=== PATIENT | male | born 1940 | race Caucasian/White ===

== ENCOUNTER 2022-11-08 19:43 | Emergency (ER) | payer MEDICARE ==
[2022-11-08 19:54] VITALS: BP 156/85; PULSE 99; RESP 20; TEMP 97.4
--- NOTE | 2022-11-08 20:23 | XR ---
EXAMINATION TYPE: XR KUB DATE OF EXAM: 11/08/2022 8:18 PM INDICATION: Patient age:Male; 82 years old; Reason for study: constipation; PH[facility]. COMPARISON: None. TECHNIQUE: One radiographic view of the abdomen was obtained. FINDINGS: The bowel gas pattern is nonspecific without dilated loops of small or large bowel. There i s no evidence for pneumoperitoneum. The osseous structures are intact with degenerative changes of t he lower lumbar spine. Fecal material and gas are demonstrated throughout the colon and rectum. Vis ualized portions of the lung bases are unremarkable. IMPRESSION: Nonspecific bowel gas pattern without radiographic evidence for acute process.
--- NOTE | 2022-11-08 21:06 | ED ---
General Adult HPI - General Chief complaint: Abdominal Pain Stated complaint: Constipated Time Seen by Provider: 11/08/22 19:58 Source: patient, EMS, RN notes reviewed Mode of arrival: EMS Limitations: no limitations - History of Present Illness Initial comments: 82-year-old male with no significant past medical history presents the emergency department with a chief complaint of constipation. Patient reports that he has gone one day without having a bowel movement. He reports that he has had an issue with constipation in the past. He reports that he attempted fecal disimpaction on its own without symptomatic relief. He denies any fever, chills, nausea,, chest pain, shortness of breath, melena, hematochezia, dysuria, hematuria. He has not taken anything for his symptoms. - Related Data Allergies Allergy/AdvReac Type Severity Reaction Status Date / Time No Known Allergies Allergy Verified 01/21/22 13:57 Review of Systems ROS Statement: Those systems with pertinent positive or pertinent negative responses have been documented in the HPI. ROS Other: All systems not noted in ROS Statement are negative. Past Medical History Past Medical History: No Reported History History of Any Multi-Drug Resistant Organisms: None Reported Additional Past Surgical History / Comment(s): Skin cancer Past Psychological History: No Psychological Hx Reported Smoking Status: Never smoker Past Alcohol Use History: None Reported Past Drug Use History: None Reported General Exam - General Exam Comments Initial Comments: General: Alert, in no acute distress Head: atraumatic normocephalic. Eyes PERRL, EOMI intact, mucous membranes moist Respiratory: Lungs clear to auscultation bilaterally Cardiovascular: Heart rate regular rate and rhythm Abdominal: Soft without guarding or rebound Extremities: Normal inspection with full range of motion and normal capillary refill Neuroogic: alert and oriented 3, CN II-XII intact, able to ambulate with steady gait Skin: warm dry and intact with normal color Limitations: no limitations Course Vital Signs 11/08/22 19:50 Temperature 97.4 F L Pulse Rate 99 Respiratory 20 Rate Blood Pressure 156/85 O2 Sat by Pulse 98 Oximetry Medical Decision Making - Medical Decision Making Was pt. sent in by a medical professional or institution (, PA, [employer] DRAWER [employer], urgent care, hospital, or skilled nursing...) When possible be specific @ -[No] Did you speak to anyone other than the patient for history (EMS, parent, family, police, friend...)? What history was obtained from this source @ -[No] Did you review nursing and triage notes (agree or disagree)? Why? @ -[I reviewed and agree with nursing and triage notes] Were old charts reviewed (outside hosp., previous admission, EMS record, old EKG, old radiological studies, urgent care reports/EKG's, skilled nursing records)? Report findings @ -[No old charts were reviewed] Differential Diagnosis (chest pain, altered mental status, abdominal pain women, abdominal pain men, vaginal bleeding, weakness, fever, dyspnea, syncope, headache, dizziness, GI bleed, back pain, seizure, CVA, palpatations, mental health, musculoskeletal)? @ -[not applicable] EKG interpreted by me (3pts min.). @ -[As above] X-rays interpreted by me (1pt min.). @ -[None done] CT interpreted by me (1pt min.). @ -[None done] U/S interpreted by me (1pt. min.). @ -[None done] What testing was considered but not performed or refused? (CT, X-rays, U/S, labs)? Why? @ -[None] What meds were considered but not given or refused? Why? @ -[None] Did you discuss the management of the patient with other professionals (pro fessionals i.e. , PA, [employer] D[employer], lab, RT, psych nurse, social media campaign manager, cattle farmer, teacher, u.s. revenue officer, insurance case manager)? Give summary @ -[No] Was smoking cessation discussed for >3mins.? @ -[No] Was critical care preformed (if so, how long)? @ -[No] Were there social determinants of health that impacted care today? How? (Homelessness, low income, unemployed, alcoholism, drug addiction, transportation, low edu. Level, literacy, decrease access to med. care, [facility], rehab)? @ -[No] Was there de-escalation of care discussed even if they declined (Discuss DNR or withdrawal of care, Hospice)? DNR status @ -[No] What co-morbidities impacted this encounter? (DM, HTN, Smoking, COPD, CAD, Cancer, CVA, ARF, Chemo, Hep., AIDS, mental health diagnosis, sleep apnea, morbid obesity)? @ -[None] Was patient admitted / discharged? Hospital course, mention meds given and route, prescriptions, significant lab abnormalities, going to OR and other pertinent info. @ -Discharged. This is a 82-year-old male who presents the emergency department with constipation. Patient had a thorough history and physical exam performed on the ED. Physical exam essentially unremarkable heart rate regular rate and rhythm, lungs clear to auscultation bilaterally, abdomen is soft and nontender. Patient able to ambulate with a steady gait. Able to move all extremities freely. Patient had imaging performed in the ED which was essentially negative. Patient was given milk and molasses enema with symptomatic relief. I discussed the results in detail with the patient verbalized understanding. . Return precautions were discussed at length. Patient discharged in stable condition. He was strongly encouraged to follow up with PCP in 1-2 days. Case discussed with MIKEY Rutledge who agrees with plan of care Undiagnosed new problem with uncertain prognosis? @ -[No] Drug Therapy requiring intensive monitoring for toxicity (Heparin, Nitro, Insulin, Cardizem)? @ -[No] Were any procedures done? @ -[No] Diagnosis/symptom? @ -constipation Acute, or Chronic, or Acute on Chronic? @ -acute Uncomplicated (without systemic symptoms) or Complicated (systemic symptoms)? @ -uncomplicated Side effects of treatment? @ -[No] Exacerbation, Progression, or Severe Exacerbation? @ -[No] Poses a threat to life or bodily function? How? (Chest pain, [place], [place], pneumonia, PE, COPD, DKA, ARF, appy, cholecystitis, CVA, Diverticulitis, Homicidal, Suicidal, threat to staff... and all critical care pts) @ -low likeihood Disposition Clinical Impression: Constipation Disposition: HOME SELF-CARE Condition: Stable Instructions (If sedation given, give patient instructions): Constipation (DC), High Fiber Diet (ED) Additional Instructions: Return to the nearest emergency department if symptoms worsen or persist Is patient prescribed a controlled substance at d/c from ED?: No Referrals: None,Stated [Primary Care Provider] - 1-2 days Time of Disposition: 21:05
== END 2022-11-08 21:12 | disposition home or self-care (01) ==
LOC: EC 19:43
DX: K59.00 Constipation, unspecified (principal)
CPT/HCPCS: 74018; 99284

== ENCOUNTER 2024-04-20 14:32 | Emergency (ER) | payer MEDICARE ==
--- NOTE | 2024-04-20 14:46 | ED ---
Altered Mental Status HPI - General Stated Complaint: AMS/Fall/poss dog bite Time Seen by Provider: 04/20/24 14:33 Source: RN notes reviewed, old records reviewed Mode of arrival: EMS Limitations: no limitations - History of Present Illness Initial Comments: This is a 84-year-old male to the ER for evaluation of altered mental status concern for fall confusion and patient admits to marijuana use today. Patient states he is not done this in years but is complaining of not feeling right and that is why he called EMS MD Complaint: altered mental status -: minutes(s) Severity: mild Consistency of Symptoms: waxing and waning Associated Symptoms: denies other symptoms Treatments Prior to Arrival: oxygen - Related Data Home Medications Medication Instructions Recorded Confirmed No Known Home Medications 04/20/24 04/20/24 Allergies Allergy/AdvReac Type Severity Reaction Status Date / Time No Known Allergies Allergy Verified 04/20/24 16:53 Review of Systems ROS Statement: Those systems with pertinent positive or pertinent negative responses have been documented in the HPI. ROS Other: All systems not noted in ROS Statement are negative. Past Medical History Past Medical History: No Reported History History of Any Multi-Drug Resistant Organisms: None Reported Additional Past Surgical History / Comment(s): Skin cancer Past Psychological History: No Psychological Hx Reported Smoking Status: Never smoker Past Alcohol Use History: None Reported Past Drug Use History: None Reported General Exam Limitations: altered mental status, physical limitation General appearance: alert, in no apparent distress Head exam: Present: atraumatic, normocephalic, normal inspection Eye exam: Present: normal appearance, PERRL, EOMI. Absent: scleral icterus, conjunctival injection, periorbital swelling ENT exam: Present: normal exam, mucous membranes moist Neck exam: Present: normal inspection. Absent: tenderness, meningismus, lymph adenopathy Respiratory exam: Present: normal lung sounds bilaterally. Absent: respiratory distress, wheezes, rales, rhonchi, stridor Cardiovascular Exam: Present: regular rate, normal rhythm, normal heart sounds. Absent: systolic murmur, diastolic murmur, rubs, gallop, clicks GI/Abdominal exam: Present: soft, normal bowel sounds. Absent: distended, tenderness, guarding, rebound, rigid Extremities exam: Present: normal inspection, full ROM, normal capillary refill. Absent: tenderness, pedal edema, joint swelling, calf tenderness Back exam: Present: normal inspection Neurological exam: Present: alert, oriented X3, CN II-XII intact Psychiatric exam: Present: normal affect, normal mood Skin exam: Present: warm, dry, intact, normal color. Absent: rash Course Vital Signs 04/20/24 04/20/24 04/20/24 14:49 16:00 19:10 Temperature 97.5 F L 98.0 F Pulse Rate 82 63 70 Respiratory 18 22 24 Rate Blood Pressure 126/66 124/70 126/80 O2 Sat by Pulse 96 97 99 Oximetry - Reevaluation(s) Reevaluation #1: 04/20/24 14:46 Medical records reviewed Reevaluation #2: 04/20/24 18:21 Patient has no complaints here in the ER symptoms improved Reevaluation #3: 04/20/24 18:21 Patient informed of results and questions answered Reevaluation #4: Was pt. sent in by a medical professional or institution (, PA, CUSTOMS BROKERAGE AGENT, urgent care, hospital, or detention...) When possible be specific @ -no Did you speak to anyone other than the patient for history (EMS, parent, family, police, friend...)? What history was obtained from this source @ -no Did you review nursing and triage notes (agree or disagree)? Why? @ -agree Are old charts reviewed (outside hosp., previous admission, EMS record, old EKG, old radiological studies, urgent care reports/EKG's, detention records)? Report findings @ -yes Differential Diagnosis (chest pain, altered mental status, abdominal pain women, abdominal pain men, vaginal bleeding, weakness, fever, dyspnea, syncope, headache, dizziness, GI bleed, back pain, seizure, CVA, palpatations, mental health, musculoskeletal)? @ -prior EKG interpreted by me (3pts min.). @ -no X-rays interpreted by me (1pt min.). @ -no CT interpreted by me (1pt min.). @ -no U/S interpreted by me (1pt. min.). @ -no What testing was considered but not performed or refused? (CT, X-rays, U/S, labs)? Why? @ -none What meds were considered but not given or refused? Why? @ -none Did you discuss the management of the patient with other professionals (professionals i.e. , PA, CUSTOMS BROKERAGE AGENT, lab, RT, psych nurse, healthcare social worker, steam and gas turbines assembler, teacher, parole hearing officer, hospice case manager)? Give summary @ -no Was smoking cessation discussed for >3mins.? @ -no Was critical care preformed (if so, how long)? @ -no Were there social determinants of health that impacted care today? How? (Homelessness, low income, unemployed, alcoholism, drug addiction, transportation, low edu. Level, literacy, decrease access to med. care, mcfp, rehab)? @ -none Was there de-escalation of care discussed even if they declined (Discuss DNR or withdrawal of care, Hospice)? DNR status @ -no What co-morbidities impacted this encounter? (DM, HTN, Smoking, COPD, CAD, Cancer, CVA, ARF, Chemo, Hep., AIDS, mental health diagnosis, sleep apnea, morbid obesity)? @ -none Was patient admitted / discharged? Hospital course, mention meds given and route, prescriptions, significant lab abnormalities, going to OR and other pertinent info. @ - 84 male to ER for evaluation of altered mental status significant odor of marijuana here in the emergency room. Patient has no other complaints feels well throughout ER stay lab testing is normal imaging is negative he can be discharged home Discharged Undiagnosed new problem with uncertain prognosis? @ -no Drug Therapy requiring intensive monitoring for toxicity (Heparin, Nitro, Insu sai, Cardizem)? @ -no Were any procedures done? @ -no Diagnosis/symptom? @ -Altered mental state Acute, or Chronic, or Acute on Chronic? @ -Acute Uncomplicated (without systemic symptoms) or Complicated (systemic symptoms)? @ -Complicated Side effects of treatment? @ -no Exacerbation, Progression, or Severe Exacerbation? @ -exacerbation Poses a threat to life or bodily function? How? (Chest pain, [place], [place], pneumonia, PE, COPD, DKA, ARF, appy, cholecystitis, CVA, Diverticulitis, Homicidal, Suicidal, threat to staff... and all critical care pts) @ -yes extremes of age Reevaluation #5: Differential Altered Mental Status: Hypoglycemia, DKA, hypercapnia, ETOH, overdose, CO poisoning, trauma, myxedema coma, HTN encephalopathy, infection, encephalitis, psychosis, intercranial hemorrhage, hepatic encephalopathy, meningitis, CVA, this is not meant to be an all-inclusive list Medical Decision Making - Medical Decision Making 84 male to ER for evaluation of altered mental status significant odor of marijuana here in the emergency room. Patient has no other complaints feels well throughout ER stay lab testing is normal imaging is negative he can be discharged home - Lab Data Result diagrams: 04/20/24 16:02 04/20/24 16:02 Lab Results 04/20/24 04/20/24 04/20/24 Range/Units 16:02 16:02 16:02 WBC 7.3 (3.8-10.6) k/uL RBC 4.44 (4.30-5.90) m/uL Hgb 13.1 (13.0-17.5) gm/dL Hct 40.5 (39.0-53.0) % MCV 91.2 (80.0-100.0) fL MCH 29.6 (25.0-35.0) pg MCHC 32.5 (31.0-37.0) g/dL RDW 12.9 (11.5-15.5) % Plt Count 224 (150-450) k/uL MPV 8.1 Neutrophils % 71 % Lymphocytes % 18 % Monocytes % 7 % Eosinophils % 1 % Basophils % 0 % Neutrophils # 5.2 (1.3-7.7) k/uL Lymphocytes # 1.3 (1.0-4.8) k/uL Monocytes # 0.5 (0-1.0) k/uL Eosinophils # 0.1 (0-0.7) k/uL Basophils # 0.0 (0-0.2) k/uL PT 11.2 (10.0-12.5) sec INR 1.0 (<1.2) APTT 25.0 (22.0-30.0) sec Sodium 140 (137-145) mmol/L Potassium 4.6 (3.5-5.1) mmol/L Chloride 107 (98-107) mmol/L Carbon Dioxide 27 (22-30) mmol/L Anion Gap 6 mmol/L BUN 23 H (9-20) mg/dL Creatinine 1.37 H (0.66-1.25) mg/dL Est GFR (CKD-EPI)AfAm 54 (>60 ml/min/1.73 sqM) Est GFR (CKD-EPI)NonAf 47 (>60 ml/min/1.73 sqM) Glucose 96 (74-99) mg/dL Calcium 9.3 (8.4-10.2) mg/dL Total Bilirubin 1.3 (0.2-1.3) mg/dL AST 22 (17-59) U/L ALT 14 (4-49) U/L Alkaline Phosphatase 77 (38-126) U/L Troponin I (0.000-0.034) ng/mL Total Protein 6.6 (6.3-8.2) g/dL Albumin 4.3 (3.5-5.0) g/dL Serum Alcohol <10 mg/dL 04/20/24 Range/Units 16:02 WBC (3.8-10.6) k/uL RBC (4.30-5.90) m/uL Hgb (13.0-17.5) gm/dL Hct (39.0-53.0) % MCV (80.0-100.0) fL MCH (25.0-35.0) pg MCHC (31.0-37.0) g/dL RDW (11.5-15.5) % Plt Count (150-450) k/uL MPV Neutrophils % % Lymphocytes % % Monocytes % % Eosinophils % % Basophils % % Neutrophils # (1.3-7.7) k/uL Lymphocytes # (1.0-4.8) k/uL Monocytes # (0-1.0) k/uL Eosinophils # (0-0.7) k/uL Basophils # (0-0.2) k/uL PT (10.0-12.5) sec INR (<1.2) APTT (22.0-30.0) sec Sodium (137-145) mmol/L Potassium (3.5-5.1) mmol/L Chloride (98-107) mmol/L Carbon Dioxide (22-30) mmol/L Anion Gap mmol/L BUN (9-20) mg/dL Creatinine (0.66-1.25) mg/dL Est GFR (CKD-EPI)AfAm (>60 ml/min/1.73 sqM) Est GFR (CKD-EPI)NonAf (>60 ml/min/1.73 sqM) Glucose (74-99) mg/dL Calcium (8.4-10.2) mg/dL Total Bilirubin (0.2-1.3) mg/dL AST (17-59) U/L ALT (4-49) U/L Alkaline Phosphatase (38-126) U/L Troponin I <0.012 (0.000-0.034) ng/mL Total Protein (6.3-8.2) g/dL Albumin (3.5-5.0) g/dL Serum Alcohol mg/dL - Radiology Data Radiology results: report reviewed (CT brain C-spine x-ray chest and pelvis negative for traumatic injury or acute disease), image reviewed Disposition Clinical Impression: Altered mental status Disposition: HOME SELF-CARE Condition: Good Instructions (If sedation given, give patient instructions): Altered Mental Status (ED) Is patient prescribed a controlled substance at d/c from ED?: No Referrals: Nonstaff,Physician [Primary Care Provider] - 1-2 days Time of Disposition: 18:00
[2024-04-20] MEDS: SODIUM CHLORIDE 0.9% 1,000 ML IV ONE (15:51)
[2024-04-20 16:26] LABS: Basophils % (A) 0 %; Eosinophils # (A) 0.1 k/uL (0-0.7); Eosinophils % (A) 1 %; HCT 40.5 % (39.0-53.0); HGB 13.1 gm/dL (13.0-17.5); Lymphocytes # (A) 1.3 k/uL (1.0-4.8); Lymphocytes % (A) 18 %; MCH 29.6 pg (25.0-35.0); MCHC 32.5 g/dL (31.0-37.0); MCV 91.2 fL (80.0-100.0); Mean Platelet Volume 8.1; Monocytes # (A) 0.5 k/uL (0-1.0); Monocytes % (A) 7 %; Neutrophils # (A) 5.2 k/uL (1.3-7.7); Neutrophils % (A) 71 %; Platelet Count 224 k/uL (150-450); RBC 4.44 m/uL (4.30-5.90); RDW 12.9 % (11.5-15.5); WBC 7.3 k/uL (3.8-10.6)
[2024-04-20 16:35] LABS: Chloride 107 mmol/L (98-107)
[2024-04-20 16:38] LABS: ALT 14 U/L (4-49); AST 22 U/L (17-59); African American GFR (CKD) 54 (>60 ml/min/1.73 sqM); Albumin 4.3 g/dL (3.5-5.0); Alcohol <10 mg/dL; Alkaline Phosphatase 77 U/L (38-126); Anion Gap 6 mmol/L; Blood Urea Nitrogen 23 mg/dL (9-20); Calcium 9.3 mg/dL (8.4-10.2); Carbon Dioxide 27 mmol/L (22-30); Glucose 96 mg/dL (74-99); Non-African American GFR(CKD) 47 (>60 ml/min/1.73 sqM); Potassium 4.6 mmol/L (3.5-5.1); Sodium 140 mmol/L (137-145); Total Bilirubin 1.3 mg/dL (0.2-1.3); Total Protein 6.6 g/dL (6.3-8.2)
--- NOTE | 2024-04-20 16:47 | CT ---
EXAMINATION TYPE: CT brain rosemary wo con DATE OF EXAM: 04/20/2024 COMPARISON: None HISTORY: fall, ams CT DLP: 1474.3 mGycm, Automated exposure control for dose reduction was used. CONTRAST: Patient injected with 0 mL of Isovue 300. CT of the brain is performed utilizing 3 mm thick sections through the posterior fossa and 3 mm thick sections through the remaining calvarium. Study is performed within 24 hours of arrival to the hospital. No abnormal hyperdensity is present to suggest an acute intracranial hemorrhage. No mass lesion is evident. No acute infarcts are evident. Very mild periventricular white matter hypodensity is present, likely on the basis of chronic white matter ischemic changes. Ventricles and sulci are minimally prominent for the patient age. Paranasal sinuses and mastoid air cells within the [id number] are clear. IMPRESSIONS: 1. No acute intracranial process. Follow-up MRI can be performed as clinically indicated. 2. Minimal white matter ischemic type changes. CT cervical spine. COMPARISON: None CT of the cervical spine is performed in the axial plane at 2 mm thick sections. Reconstructed image s in the coronal, and sagittal plane are reviewed on the computer. No acute fractures are evident. Vertebral body alignment is normal. There is loss of disc height posteriorly C2-3 C3-4 C4-5. There is loss of disc at C6-7 Vertebral body heights are preserved. Anterior spinal canal impression is present C3-4 in the left paracentral region. Some mild left foraminal narrowing from uncovertebral joint hemorrhage is present. Mild right foramin al narrowing is present C5-6 IMPRESSION: 1. Degenerative disc changes with some mild foraminal narrowing discussed above. 2. No acute osseous abnormality [facility], Workstation: [facility], 04/20/2024 4:45 PM
[2024-04-20 17:35] LABS: Prothrombin Time 11.2 sec (10.0-12.5)
--- NOTE | 2024-04-20 17:58 | XR ---
EXAMINATION TYPE: XR chest 1V DATE OF EXAM: 04/20/2024 COMPARISON: None INDICATION: Fall TECHNIQUE: Single frontal view of the chest is obtained. FINDINGS: The heart size is normal. The pulmonary vasculature is normal. The lungs are clear. No pneumothorax is evident. No displaced rib fractures. IMPRESSION: 1. No acute pulmonary process. [facility], Workstation: [facility], 04/20/2024 5:56 PM
--- NOTE | 2024-04-20 17:59 | XR ---
EXAMINATION TYPE: XR pelvis AP view DATE OF EXAM: 04/20/2024 COMPARISON: None HISTORY: Fall, pain TECHNIQUE: AP pelvis FINDINGS: Femoral heads articulate with the acetabulum. Symphysis pubis and sacroiliac joints are nor mal. Normal bowel gas is present. No acute fractures evident. There may be attempted sacralization of L5 on the right IMPRESSION: 1. No acute osseous abnormalities AP pelvis. [facility], Workstation: [facility], 04/20/2024 5:57 PM
[2024-04-20 21:47] VITALS: BP 126/80; PULSE 70; RESP 24; TEMP 98
== END 2024-04-20 19:10 | disposition home or self-care (01) ==
LOC: EC 14:32
DX: R41.82 Altered mental status, unspecified (principal); F12.90 Cannabis use, unspecified, uncomplicated; W19.XXXA Unspecified fall, initial encounter
CPT/HCPCS: 36415; 80053; 84484; 85025; 85610; 85730; 72170; 71045; 72125; 70450; 99285; 96360; G0480; 80320